=== PATIENT | male | born 1995 | race Caucasian/White ===

== ENCOUNTER 2017-03-09 22:54 | Emergency (ER) | payer SELFPAY ==
[2017-03-09 23:30] VITALS: BP 123/86
--- NOTE | 2017-03-10 00:40 | ER Document Report ---
ED Skin Rash/Insect Bite/Abscs - General Mode of Arrival: Ambulatory Information source: Patient TRAVEL OUTSIDE OF THE [place] IN LAST 30 DAYS: No - HPI Patient complains to provider of: Skin rash/lesion, Possible insect bite Onset: Other - 2 weeks ago <BARB GRAHAM - Last Filed: 03/10/17 01:48> <RODRÍGUEZHERMELINDA HOLDEN - Last Filed: 03/10/17 05:56> - General Chief Complaint: Skin Problem Stated Complaint: SKIN IRRITATION Time Seen by Provider: 03/09/17 23:42 Notes: 21 year old male presents to the ED complaining of a possible bug bite to the right lateral thigh which he noticed 2 weeks ago. Patient additionally reports having a 'blotchy' looking penile head which he noticed earlier today. Patient has recently moved from [place] to [place]. Patient has multiple dogs in the house and sleeps on an old used mattress on the ground. Patient reports that his friend in [place] recently developed scabies. Patient is not currently sexually active. Patient states that his penile and right thigh rash are not pruritic, but does complain of some itchy rash in between his fingers of his right hand. (BARB GRAHAM) Past Medical History - General Information source: Patient - Social History Smoking Status: Unknown if Ever Smoked Family History: Reviewed & Not Pertinent Patient has suicidal ideation: No Patient has homicidal ideation: No - Medical History Medical History: Negative Renal/ Medical History: Denies: Hx Peritoneal Dialysis Surgical Hx: Negative <BARB GRAHAM - Last Filed: 03/10/17 01:48> Review of Systems - Review of Systems Constitutional: No symptoms reported EENT: No symptoms reported Cardiovascular: No symptoms reported Respiratory: No symptoms reported Gastrointestinal: No symptoms reported Genitourinary: No symptoms reported Male Genitourinary: No symptoms reported Musculoskeletal: No symptoms reported Skin: See HPI, Rash - right lateral thigh and penile head Hematologic/Lymphatic: No symptoms reported Neurological/Psychological: No symptoms reported -: Yes All other systems reviewed and negative <BARB GRAHAM - Last Filed: 03/10/17 01:48> Physical Exam - Vital signs Interpretation: Normal - General General appearance: Appears well, Alert - HEENT Head: Normocephalic, Atraumatic Eyes: Normal Pupils: PERRL - Respiratory Respiratory status: No respiratory distress Chest status: Nontender Breath sounds: Normal Chest palpation: Normal - Cardiovascular Rhythm: Regular Heart sounds: Normal auscultation Murmur: No - Abdominal Inspection: Normal Distension: No distension Bowel sounds: Normal Tenderness: Nontender Organomegaly: No organomegaly - Genitourinary Inspection: Other - red rash to penis. No vesicles. No TTP. No: Blood at meatus, Penile discharge Tenderness: Nontender Cremasteric reflex: Normal Scrotum: Normal - Back Back: Normal, Nontender - Extremities General upper extremity: Normal inspection, Nontender, Normal color, Normal ROM , Normal temperature General lower extremity: Normal inspection, Nontender, Normal color, Normal ROM , Normal temperature, Normal weight bearing. No: Linnea's sign - Neurological Neuro grossly intact: Yes Cognition: Normal Orientation: AAOx4 [place] Coma Scale Eye Opening: Spontaneous [place] Coma Scale Verbal: Oriented [place] Coma Scale Motor: Obeys Commands Cathy Coma Scale Total: 15 Speech: Normal Motor strength normal: LUE, RUE, LLE, RLE Sensory: Normal - Psychological Associated symptoms: Normal affect, Normal mood - Skin Skin Temperature: Warm Skin Moisture: Dry Skin Color: Normal Skin irregularity: other - area to RLE laterally and back c/w scabies <HERMELINDA ARREGUIN - Last Filed: 03/10/17 05:56> - Vital signs Vitals: Temp Pulse Resp BP Pulse Ox 98.3 F 63 15 123/86 H 98 03/09/17 23:25 03/09/17 23:25 03/09/17 23:25 03/09/17 23:25 03/09/17 23:25 Course <BARB GRAHAM - Last Filed: 03/10/17 01:48> <HERMELINDA ARREGUIN - Last Filed: 03/10/17 05:56> - Re-evaluation Re-evalutation: 03/10/17 Patient is a 21-year-old male who comes in with a rash on his leg, and penis. Patient also has some itching between his fingers. Consistent with scabies. Patient will be given permethrin and is to follow-up with his doctor. Given instructions about cleaning house, particularly mattress. Understands agrees with plan. Stable for discharge. No evidence for STD at this time. (HERMELINDA ARREGUIN) - Vital Signs Vital signs: Temp Pulse Resp BP Pulse Ox 98.1 F 88 18 123/86 H 98 03/10/17 01:14 03/10/17 01:14 03/10/17 01:14 03/09/17 23:25 03/10/17 01:14 Discharge <BARB GRAHAM - Last Filed: 03/10/17 01:48> <HERMELINDA ARREGUIN - Last Filed: 03/10/17 05:56> - Discharge Clinical Impression: Scabies Condition: Stable Disposition: HOME, SELF-CARE Instructions: Scabies ([facility]) Prescriptions: Permethrin [Lice Bedding] 142 gm MC ONCE PRN 1 Days spray PRN Reason: Permethrin [Elimite] 60 gm TP ONCE PRN #60 cream.gm. PRN Reason: Forms: Return to Work Scribe Attestation: 03/10/17 05:56 I personally performed the services described in the documentation, reviewed and edited the documentation which was dictated to the scribe in my presence, and it accurately records my words and actions. (HERMELINDA ARREGUIN) Scribe Documentation - Scribe Written by Chapo:: Chapo Dyer, 03/10/2017 [id number] acting as scribe for :: Rodríguez <BARB GRAHAM - Last Filed: 03/10/17 01:48>
[2017-03-10] MEDS ORDERED: PERMETHRIN 1% LOTION 59 ML TP ONE (00:42)
[2017-03-10] MEDS ORDERED: PERMETHRIN 1% LOTION 59 ML ONE (00:55)
== END 2017-03-10 01:14 | disposition home or self-care (01) ==
LOC: ER 22:54
DX: B86 Scabies (principal)
CPT/HCPCS: 99283; J3490